=== PATIENT | male | born 1945 | race Caucasian/White ===

== ENCOUNTER → 2020-12-31 09:42 | Outpatient (CLI) | payer MEDICARE, OTHER, SELFPAY ==
[2020-12-31 11:06] LABS: COVID19 -Nasal RAPID Negative (Negative)
== END ==
PROVIDERS: PCP Family Medicine; Visit Provider Specialist
DX: Z20.822 Contact with and (suspected) exposure to COVID-19 (principal)
CPT/HCPCS: 87635; C9803

== ENCOUNTER 2021-01-01 06:18 | Day surgery (SDC) | payer MEDICARE, OTHER, SELFPAY ==
[2021-01-01 07:17] VITALS: BP 119/71; PULSE 72; RESP 22; TEMP 36.1; O2SAT 97; BMI 40.1
[2021-01-01] MEDS: LACTATED RINGERS 1,000 ML 42 ML IV (07:40)
--- NOTE | 2021-01-01 08:35 | PM.PREOP ---
Pre-operative Note COVID-19 COVID-19 status: Negative Result date/Date tested (Pos, Neg/Pending): 12/31/20 Interval Note History & Physical reviewed/Exam performed by Physician: Yes Changes to H&P: No ASA Class (for procedural sedation): III
[2021-01-01] MEDS: MIDAZOLAM 5 MG/5 ML VIAL IV (08:50)
[2021-01-01] MEDS: fentaNYL 250 MCG/5 ML INJ IV (08:57)
--- NOTE | 2021-01-01 09:17 | PM.OP.ENDO ---
Operative Date/Time/Diagnoses Date of procedure: 01/01/21 Time of procedure: 09:17 Pre-op diagnosis: Positive Hemoccult test Post-op diagnosis: same (Extensive diverticulosis especially in the sigmoid colon) Procedure & Clinicians Study performed: Colonoscopy Same procedure as scheduled: Yes Indications: Positive Hemoccult test Surgeon: Good Zhang Procedure Notes SCOAP/Timeout: Performed Procedure in detail: The patient was placed in the left lateral decubitus position and underwent IV sedation directed by the surgeon consisting of fentanyl and Versed. Digital exam was remarkable but I could not insert my finger far enough to feel his prostate. The scope was inserted and advanced through the rectum into the sigmoid, descending, transverse, and ascending colon. Pandiverticulosis was noted principally in the sigmoid colon. There was mild narrowing of the sigmoid colon. The cecum was reached identified by the ileocecal valve and the appendiceal opening. The scope was gradually brought out. No Polyps were found. The scope ultimately was retroflexed in the rectum. The appearance was normal. The scope was removed and the patient tolerated the procedure well. Scope withdrawal time: 10 minutes Sedation minutes: 25 Findings: diverticulosis Specimen(s): none sent Complications: none Post-procedure Plan for aftercare: Due to age, screening colonoscopy is not recommended. You should however have a colonoscopy for symptoms should they develop. Follow up: as needed Disposition: PACU
[2021-01-01 09:20] VITALS: BP 121/59; PULSE 66; RESP 16; TEMP 36.6; O2SAT 95
[2021-01-01 09:26] VITALS: BP 110/53; PULSE 69; RESP 15; O2SAT 96
[2021-01-01 09:28] VITALS: BP 112/46; PULSE 73; RESP 16; TEMP 36.9; O2SAT 95
[2021-01-01 09:33] VITALS: BP 115/52; PULSE 68; RESP 12; TEMP 36.7; O2SAT 96
[2021-01-01 09:51] VITALS: BP 115/69; PULSE 69; RESP 16; TEMP 36.6; O2SAT 96
--- NOTE | 2021-01-01 10:02 | SUR.PHASEII ---
PT READY TO GO, CALLED. AVAILABLE FOR [employer] CIG[employer] MAKING HAND, BELLY REMAINED SOFT, TOLERATED PO FLUIDS, PT LEFT UNIT IN STABLE CONDITION.
== END 2021-01-01 09:50 | disposition home or self-care (01) ==
PROVIDERS: PCP Family Medicine; Referring Provider Specialist; Visit Provider Specialist
PROC: 0DJD8ZZ Inspection of Lower Intestinal Tract, Via Natural or Artificial Opening Endoscopic (ICD-10-PCS; CPT 45378; principal; 2021-01-01 07:45)
DX: R19.5 Other fecal abnormalities (principal); I48.91 Unspecified atrial fibrillation; I25.10 Atherosclerotic heart disease of native coronary artery without angina pectoris; K57.30 Diverticulosis of large intestine without perforation or abscess without bleeding
CPT/HCPCS: 45378; 99152; J2250; J3010